=== PATIENT | female | born 1975 | race Caucasian/White ===

== ENCOUNTER 2016-02-28 12:45 | Day surgery (SDC) | payer MEDICAID ==
[~2016-02-28 12:45] MED LIST: OXYMETAZOLINE 30 ML NASAL SPRAY EACHNARE PRN; ceFAZolin 2 GM/DEXTROSE 100 ML IV ONE
[2016-02-28] MEDS ORDERED: LIDOCAINE 1% 5 ML SDV ONE (12:57)
[2016-02-28] MEDS ORDERED: CEFAZOLIN 2 GM/DEXTROSE/100 ML BAG IV ONE (12:58)
[2016-02-28] MEDS ORDERED: LIDO/EPI 1% **Not for Epidural 20 ML MDV ONE ×2 (13:00→15:35)
[2016-02-28] MEDS ORDERED: DEXAMETHASONE 4 MG/ML VIAL ONE ×2 (13:02→13:03)
[2016-02-28] MEDS ORDERED: WATER FOR INJ.,BACTERIOSTATIC 30 ML MDV ONE (13:03)
[2016-02-28] MEDS ORDERED: LIDOCAINE 1% 5 ML SDV ID PRN (13:20)
[2016-02-28] MEDS ORDERED: LR 1,000 ML IV ONE (13:20)
[2016-02-28] MEDS ORDERED: PROPOFOL 200 MG/20 ML VIAL ONE (13:30)
[2016-02-28] MEDS ORDERED: LIDOCAINE 2% 5 ML SDV ONE (13:30)
[2016-02-28] MEDS ORDERED: HYDROmorphONE/DILAUDID 2 MG/ML SYR ONE (13:32)
[2016-02-28] MEDS ORDERED: ROCURONIUM 50 MG/5 ML VIAL ONE (13:33)
[2016-02-28] MEDS ORDERED: ONDANSETRON 4 MG/2 ML VIAL ONE ×2 (13:34→16:29)
[2016-02-28] MEDS ORDERED: METOCLOPRAMIDE 10 MG/2 ML VIAL ONE (13:34)
[2016-02-28] MEDS ORDERED: MIDAZOLAM 2 MG/2 ML VIAL ONE (13:38)
[2016-02-28] MEDS ORDERED: fentaNYL 100 MCG/2 ML INJ ONE (15:52)
[2016-02-28] MEDS ORDERED: OXYCODONE/APAP 5/325 TAB ONE (16:25)
[2016-02-28] MEDS ORDERED: HYDROmorphONE/DILAUDID 1 MG/ML SYR ONE (17:09)
[2016-02-28] MEDS ORDERED: PROMETHAZINE HCL 25 MG/ML VIAL ONE (17:44)
--- NOTE | 2016-02-28 20:34 | GOP ---
[f rep st] OPERATIVE REPORT DATE OF OPERATION: 02/28/2016 SURGEON: Mercedez Delong MD MOLD HOISTER: None. ANESTHESIA: General endotracheal. PREOPERATIVE DIAGNOSIS: 1. Chronic maxillary sinusitis. 2. Chronic ethmoid sinusitis. 3. Chronic sphenoid sinusitis. POSTOPERATIVE DIAGNOSIS: 1. Chronic maxillary sinusitis. 2. Chronic ethmoid sinusitis. 3. Chronic sphenoid sinusitis. PROCEDURE PERFORMED: 1. Revision, maxillary antrostomies, bilaterally. 2. Total ethmoidectomy. 3. Bilateral sphenoidotomy. 4. Use of [employer] navigation system. FINDINGS: 1. Diffuse polypoid change with pansinusitis. 2. Residual uncinate process, particularly superiorly. 3. The majority of the anterior and posterior ethmoids remain in place. 4. Lateralization of the middle turbinates. SPECIMENS: None. ESTIMATED BLOOD LOSS: 50 cc. INDICATIONS: The patient is a 40-year-old female who has had a longstanding history with 2 prior sin us surgeries for her chronic rhinosinusitis. She continues to suffer from chronic facial pain, heada ches, pressure and purulent drainage. We attempted to treat her medically and we also took her off a spirin which she had been dependent upon for over 15 years. However, she had persistent disease both objectively on a CT scan as well as her examination as well as subjectively. Risks, benefits, and a lternatives of the above procedure were discussed, and it was decided to proceed forward. DESCRIPTION OF PROCEDURE: The patient was met in preoperative holding, and informed consent was conf irmed. After the patient was brought to the operating room, she underwent induction of general anesth esia with placement of endotracheal tube without difficulty. She was rotated 180 degrees to the [facility], and positioned, prepped and draped in the standard fashion. I examined her nose with a 0-degree rigid endoscope. 3 cc of 1% lidocaine, 1:100,000 epinephrine was infiltrated throughout t he middle turbinate as well as the superior septum. The septum here appeared soft, although it is st ill somewhat bowed to the right. I opted not to perform any revisions on this area as there was adeq uate access to the sinuses bilaterally. I began on the right side. The middle turbinate was then me dialized and the adhesions were lysed, and there was a superior portion of the uncinate process that was clearly remaining. I outlined this with the seeker elevator and teased this anteriorly and then was able to remove it in its entirety, both with a biting Blakesley forceps as well as a microdebride r. I then widened the inferior portion of the maxillary antrostomy that had been previously performe d as there had been some scarring inferiorly. Next, using the navigation microdebrider, anterior eth moidectomy was performed starting immediately inferiorly and working superolaterally and then progres sively through the vertical lamella into the posterior ethmoid. Throughout, there were diminutive po lyps as well as diffuse polypoid change at the lining of the mucosa in general, but no purulence. Us e of the navigation demonstrated I was able to take this all the way up to the skull base to the face of the sphenoid sinus. Using a Rodriguez tip suction, I then entered the sphenoid sinus as well and t his was gently opened widely. At this point, an Afrin-soaked pledget was placed on the right side, a nd I turned my attention to the left in the same fashion. The middle turbinate was medialized aggres sively, and the scar banding superiorly was lysed. Again, there was some residual uncinate that was teased forward superiorly and removed using a combination of the Blakesley forceps as well as the mary rodebrider. The remaining portion of the maxillary antrostomy on this side was fairly open, and I le ft this alone. Again, anterior ethmoidectomy was performed starting medially inferiorly and working superolaterally with use of a navigation system throughout on the microdebrider itself, taking this a ll the way to the skull base and to the level of the basal lamella. I crossed through the basal lame lla using Rodriguez tip suction, and then again performed a posterior ethmoidectomy on this side to the level of the skull base throughout using the navigation. Again, there was diffuse polypoid change a s well as several small diminutive polyps. Again, once I was at the face of the sphenoid, I opted to open the sphenoid using the Rodriguez tip suction, and this was gently widened using straight and upbi ting Blakesley forceps. At this point, the nose was copiously irrigated. There was no evidence of f urther bleeding. Marisa foam was placed in each middle meatus. At this point, the nose was suc tioned free of any excess blood and the patient was then turned back to anesthesia for wake up. At t he end of this procedure, all sponge, needle, and instrument counts were correct. I personally perfo rmed all portions of this case. FLUIDS: 1 L of crystalloid. /[id number]/MODL
== END 2016-02-28 18:38 | disposition home or self-care (01) ==
LOC: FSGY 12:45
PROVIDERS: ATTEND Otolaryngology
PROC: 099 Ear, Nose, Sinus, Drainage (ICD-10-PCS; principal; 2016-02-28 14:30)
PROC: 099Q4ZZ Drainage of Right Maxillary Sinus, Percutaneous Endoscopic Approach (ICD-10-PCS; principal; 2016-02-28 14:30)
PROC: 099R4ZZ Drainage of Left Maxillary Sinus, Percutaneous Endoscopic Approach (ICD-10-PCS; principal; 2016-02-28 14:30)
PROC: 099X4ZZ Drainage of Left Sphenoid Sinus, Percutaneous Endoscopic Approach (ICD-10-PCS; principal; 2016-02-28 14:30)
PROC: 09TV4ZZ Resection of Left Ethmoid Sinus, Percutaneous Endoscopic Approach (ICD-10-PCS; principal; 2016-02-28 14:30)
PROC: 09TU4ZZ Resection of Right Ethmoid Sinus, Percutaneous Endoscopic Approach (ICD-10-PCS; principal; 2016-02-28 14:30)
DX: J32.0 Chronic maxillary sinusitis (principal); J32.3 Chronic sphenoidal sinusitis; J32.2 Chronic ethmoidal sinusitis; E10.9 Type 1 diabetes mellitus without complications; I10 Essential (primary) hypertension; K21.9 Gastro-esophageal reflux disease without esophagitis; J45.909 Unspecified asthma, uncomplicated; M06.9 Rheumatoid arthritis, unspecified
CPT/HCPCS: J0690; J1100; J1170; J2250; J2405; J2550; J2704; J2765; J3010